=== PATIENT | female | born 1965 | race Caucasian/White ===

== ENCOUNTER 2023-10-14 10:20 | Emergency (ER) | payer OTHER, SELFPAY ==
--- NOTE | ~2023-10-14 | CT_ITS ---
CT Facial Bones and Cervical Spine Clinical Indication: Status post fall Technique: Contiguous axial scans were obtained through the facial bones and cervical spine followed by coronal and sagittal reconstructions. Dose reduction technique was used on this scan by utilizing automated exposure control and iterative reconstruction technique. The dose-length product (DLP) was 414.00 mGy-cm. Findings: CT facial bones: No fractures are identified. The visualized paranasal sinuses are clear. Intraorbita l soft tissues appear normal. There is right periorbital soft tissue swelling extending to the right forehead. CT cervical spine: No acute fracture. There is 2 mm retrolisthesis of C4-C5. There is advanced degene rative disc narrowing C4-C5, C5-C6, and C6-C7. Probable mild bilateral neural foraminal narrowing at C4-C5. Bilateral neural foraminal narrowing present at C5-C6 and C6-C7. Probable mild canal stenosis at C5-C6 and C6-C7. No prevertebral soft tissue swelling. Impression: No fracture is seen in the facial bones. No fracture in the cervical spine. Right periorbital soft tissue swelling. 2 mm retrolisthesis of C4 over C5. Moderate degenerative spondylosis of the cervical spine, as above. Reviewed, dictated and finalized at location . Impression: No fracture is seen in the facial bones. No fracture in the cervical spine. Right periorbital soft tissue swelling. 2 mm retrolisthesis of C4 over C5. Moderate degenerative spondylosis of the cervical spine, as above.
--- NOTE | ~2023-10-14 | CT_ITS ---
Non-contrast Head CT History: Status post fall Technique: Axial non-contrast imaging of the brain was performed. Dose reduction technique was used on this scan by utilizing automated exposure control and iterative reconstruction technique. The dose -length product (DLP) was 605.33 mGy-cm. Findings: There is no evidence of intracranial hemorrhage, mass lesion, or acute infarct. Brain par enchyma appears normal. The ventricles and subarachnoid spaces are normal in size. The calvarium ap pears normal. The visualized paranasal sinuses and mastoid air cells are clear. There is soft tissue swelling at the right forehead/right periorbital region. Impression: No intracranial abnormality seen. Soft tissue swelling, as above. Reviewed, dictated and finalized at location . Impression: No intracranial abnormality seen. Soft tissue swelling, as above.
[2023-10-14 10:23] VITALS: BP 163/82; PULSE 60; RESP 18; TEMP 36.7; O2SAT 99
--- NOTE | 2023-10-14 10:49 | ED.HEATRA ---
HPI - Head Injury General Chief complaint: Head Injury Stated complaint: head injury, fell at work Time Seen by Provider: 10/14/23 10:37 Source: patient Mode of arrival: ambulatory Limitations: no limitations History of Present Illness HPI Narrative: Patient is a 58 y/o female who presents to the ED with c/o HI. Patient reports she tripped while walking at work and fell, hitting her right-sided face on the ground. She sustained a contusion to her right periorbital region. Denied LOC. She is on Plavix. Prompted here for further evaluation. She denies any dizziness, lightheadedness, syncope, neck or back pain, vision changes. She does also complain of pain to her right knee. Small area of bruising noted. Review of Systems Review of Systems: CONSTITUTIONAL: Denies fever, chills, or sweats. ENT: See HPI. MUSCULOSKELETAL: See HPI. NEUROLOGIC: See HPI. All systems reviewed & are unremarkable except as noted in HPI and below Exam Narrative: GENERAL: Well appearing, obese with BMI of 31.7, non-toxic, in no acute distress. HEAD: Normocephalic. Contusion to R periorbital region/R forehead. EYE: PERRL/EOMI, conjunctiva clear. Moderate swelling and ecchymosis to R upper eyelid/R periorbital region. No gaze deviation. NECK: No posterior midline cervical spinal tenderness. RESPIRATORY: Airway patent, respirations nonlabored. Clear to auscultation bilaterally, no rales, rhonchi, wheezing. CARDIOVASCULAR: Regular rate and rhythm MUSCULOSKELETAL: Moves all extremities. No gross deformities. No tenderness around thoracic or lumbar spine. Mild tenderness over right anterior knee with small amount of ecchymosis and swelling present. Sensation intact. SKIN: Warm, dry, normal color. NEURO: A&O X3. Speech clear. Cranial nerves II-XII grossly intact. Steady gait. No ataxic movements. No focal deficits. PSYCHIATRIC: Appropriate mood and affect. Normal interaction. Course Vital Signs Vital signs: Vital Signs Temperature 98.0 F 10/14/23 10:23 Pulse Rate 60 10/14/23 10:23 Respiratory Rate 18 10/14/23 10:23 Blood Pressure 163/82 H 10/14/23 10:23 Pulse Oximetry 99 10/14/23 10:23 Oxygen Delivery Room Air 10/14/23 10:23 Temperature 98.0 F 10/14/23 10:23 Pulse Rate 60 10/14/23 10:23 Respiratory Rate 18 10/14/23 10:23 Blood Pressure 163/82 H 10/14/23 10:23 Pulse Oximetry 99 10/14/23 10:23 Oxygen Delivery Room Air 10/14/23 10:23 MDM - Head Injury MDM Narrative Medical decision making narrative: Patient presented to ED status post head injury, injury to right periorbital region. On Plavix. Vitals stable. No focal neurologic deficits appreciated on exam. CT brain, cervical spine, facial bones negative for for traumatic findings. No fractures. Does show soft tissue swelling to right periorbital region, consistent with exam. No vision changes or evidence of eye entrapment. X-ray right knee negative. Patient was updated on imaging results. Will be discharged at this time. Advised to utilize ice to face, Tylenol as needed for pain. Will prescribe short course of [place] for pain management. Patient advised follow-up with PCP for further evaluation. She was given return precautions. Discharged in stable condition. Medical Records Attestation: I reviewed the patient's medical records. Imaging Data Attestation: I personally reviewed and interpreted this imaging study as follows: Radiologist's impression: ITS Impressions Head CT 10/14/23 11:13 Impression: No intracranial abnormality seen. Soft tissue swelling, as above. Head/Cervical Spine/Facial Bones CT 10/14/23 11:14 Impression: No fracture is seen in the facial bones. No fracture in the cervical spine. Right periorbital soft tissue swelling. 2 mm retrolisthesis of C4 over C5. Moderate degenerative spondylosis of the cervical spine, as above. Knee X-Ray 10/14/23 11:14 Impression: Unremarkable r
[2023-10-14] MEDS: ACETAMINOPHEN 500 MG TABLET 1000 MG PO (12:14)
[2023-10-14] MEDS: Please add drug allergy info to patient profile. 1 EACH XX (12:14)
== END 2023-10-14 12:10 | disposition home or self-care (01) ==
PROVIDERS: Emergency Provider Physician Assistant; PCP Family Medicine
DX: S86.911A Strain of unspecified muscle(s) and tendon(s) at lower leg level, right leg, initial encounter (principal); S05.11XA Contusion of eyeball and orbital tissues, right eye, initial encounter; W01.0XXA Fall on same level from slipping, tripping and stumbling without subsequent striking against object, initial encounter
CPT/HCPCS: 70450; 70486; 72125; 73564; 99284; A9270

== ENCOUNTER 2023-11-12 09:46 | Emergency (ER) | payer OTHER, SELFPAY ==
[2023-11-12 09:55] VITALS: BP 128/68; PULSE 85; RESP 20; TEMP 37.4; O2SAT 99
--- NOTE | 2023-11-12 10:40 | ED.URI ---
HPI - URI/Sore Throat General Chief Complaint: Upper Respiratory Infection Stated Complaint: Fever/Chills/Sore Throat History of Present Illness HPI Narrative: patient is a 58-year-old female, presents to [facility] with body aches, chills, subjective fever, sore throat, nasal congestion rhinorrhea with a slight cough. Her cough is nonproductive. She took Tylenol for the day yesterday for symptom relief but ran out last night. She has not taken any medication today for symptom relief. She states that she has no known sick contacts, no COVID-19 exposures. She has no associated chest pain shortness of breath, no orthopnea, no nausea vomiting or diarrhea. No urinary symptoms. Related Data Home Medications Medication Instructions Recorded Confirmed clopidogrel 75 mg tablet 75 mg PO DAILY 11/12/23 11/12/23 Allergies Allergy/AdvReac Type Severity Reaction Status Date / Time Penicillins Allergy Intermediate Rash Verified 11/12/23 10:05 Review of Systems Constitutional: Comments: Refer to HPI ENT: Comments: refer to HPI Respiratory: Comments: refer to H Exam Const: General: healthy appearing Nutritional Appearance: obese Orientation/consciousness: patient oriented x3 Limitations: no limitations HENMT: Head: normal to inspection Ears: external ears normal and TM abnormal other ( serous effusion bilaterally, no purulence, no erythema) Face/Nose/Sinus: Nasal discharge present clear Face and sinus: normal facial exam Mouth: Yes Normal oral and palatal mucosa present Throat: posterior oropharynx normal and uvula midline Eyes: Conjunctivae: conjunctivae normal Pupils: Equal, round and reactive pupils present EOM: EOMs intact bilaterally Neck: Neck: normal visual inspection, no lymphadenopathy and no meningeal signs Resp: Effort & Inspection: normal respiratory effort Auscultation: clear to auscultation bilaterally Cardio: Rate: regular rate Rhythm: regular rhythm Back/Spine/Pelvis: Back: no CVA tenderness Skin: General skin exam: normal color Rashes: no rashes Neuro: General: patient oriented x3, moves all extremities, no focal motor deficits and CN's II-XI intact bilaterally Cranial nerves: Yes Nystagmus not present Extrem: General: normal to inspection, no clubbing, cyanosis or edema and no pedal edema Psych: Mental Status: mental status grossly normal Course Course Emergency Course: COVID-19 negative, patient's examination is consistent with viral URI, will plan to treat with short steroid course, cough suppressant, Tylenol may be continued as directed [id number]. Flonase may be added as well. Patient verbalized understanding she agreed with plan of care. She will follow-up with her PCP in 3-5 days if her symptoms are not improving, ER for condition worsens in any way. Level of Care: [facility] Care Visit ([id number]) Vital Signs Vital signs: Vital Signs Temperature 37.4 C 11/12/23 09:55 Pulse Rate 85 11/12/23 09:55 Respiratory Rate 20 11/12/23 09:55 Blood Pressure 128/68 11/12/23 09:55 Pulse Oximetry 99 11/12/23 09:55 Oxygen Delivery Room Air 11/12/23 09:55 Temperature 37.4 C 11/12/23 09:55 Pulse Rate 85 11/12/23 09:55 Respiratory Rate 20 11/12/23 09:55 Blood Pressure 128/68 11/12/23 09:55 Pulse Oximetry 99 11/12/23 09:55 Oxygen Delivery Room Air 11/12/23 09:55 MDM - URI/Sore Throat MDM Narrative Medical decision making narrative: prednisone, promethazine DM Lab Data Labs: Lab Results 11/12/23 Range/Units 10:03 POC SARS CoV-2 Ag Negative (Negative) Discharge Plan Discharge Clinical Impression: Upper respiratory infection Qualifiers: URI type: unspecified URI Qualified Code(s): J06.9 - Acute upper respiratory infection, unspecified Patient Disposition: Home, Self-Care Condition: Stable Instructions: Antibiotic Form, Upper Respiratory Infection (DC) Additional Instructions
== END 2023-11-12 10:50 | disposition home or self-care (01) ==
PROVIDERS: Emergency Provider Nurse Practitioner Family; PCP Family Medicine
DX: J06.9 Acute upper respiratory infection, unspecified (principal); Z20.822 Contact with and (suspected) exposure to COVID-19
CPT/HCPCS: 87426; 99213; G0463